=== PATIENT | male | born 1990 ===

== ENCOUNTER 2022-08-21 16:12 | Inpatient (IN) ==
[2022-08-21] MEDS ORDERED: SODIUM CHLORIDE 0.9% 1,000 ML IV PRN (16:42)
[2022-08-21 17:32] LABS: Basophils % 0.2 % (0.0-0.8); Eosinophils % 0.7 % (0.00-10.9); Immature Granulocytes % 0.7 %; Immature Granulocytes Absolute 0.03 #; Lymphocytes # 0.8 10*3/uL (1.4-4.0); Lymphocytes % 19.7 % (21.2-54.2); Mean Corpuscular Volume 75.8 FL (87-102); Mean Platelet Volume 8.5 FL (9.6-12.0); Monocytes # 0.5 10*3/uL (0.11-0.8); Monocytes % 12.5 % (1.7-12.7); NRBC # 0.05 10*3/uL; Neutrophils % 66.2 % (38.7-73.9); Platelet Count 291 T/CUMM (130-400); Red Blood Count 1.61 MC/CUMM (3.8-5.5); Red Cell Distribution Width 18.6 % (9.3-17.3)
[2022-08-21 17:33] LABS: Hemoglobin 3.3 GM/DL (14.0-18.0)
[2022-08-21 17:34] LABS: Hematocrit 12.2 VOL% (42.0-52.0)
[2022-08-21 17:49] LABS: Vitamin B12 169 PG/ML (211-911)
[2022-08-21] MEDS ORDERED: hydrALAZINE 20 MG/1 ML VIAL IV PRN (18:19)
[2022-08-21] MEDS ORDERED: guaiFENesin/DM ER 600-30 MG TABLET PO PRN (18:19)
[2022-08-21] MEDS ORDERED: NICOTINE 21 MG/24 HR PATCH TRANSDERM PRN (18:19)
[2022-08-21] MEDS ORDERED: ALBUTEROL/IPRATROPIUM 3 ML NEB RESP TX PRN (18:19)
[2022-08-21] MEDS ORDERED: PANTOPRAZOLE INJ 80 MG in SODIUM CHLORIDE 0.9% 100 ML IV ONE (18:19)
[2022-08-21] MEDS ORDERED: ZALEPLON 5 MG CAPSULE PO PRN (18:19)
[2022-08-21] MEDS ORDERED: ONDANSETRON 4 MG/2 ML VIAL IV PRN (18:19)
[2022-08-21] MEDS ORDERED: diphenhydrAMINE CAP 25 MG CAPSULE PO PRN (18:19)
[2022-08-21 18:50] LABS: Sedimentation Rate-Westergren 75 MM/HR (0-15)
[2022-08-22] MEDS: PANTOPRAZOLE INJ 200 MG in SODIUM CHLORIDE 0.9% 250 ML IV SCH (00:36)
[2022-08-22 05:13] LABS: Basophils % 0.2 % (0.0-0.8); Eosinophils # 0.1 10*3/uL (0.0-0.87); Eosinophils % 0.9 % (0.00-10.9); Immature Granulocytes % 0.5 %; Immature Granulocytes Absolute 0.03 #; Lymphocytes # 0.7 10*3/uL (1.4-4.0); Lymphocytes % 13.3 % (21.2-54.2); Mean Corpuscular HGB Conc 30.1 GM/DL (32-36); Mean Corpuscular Volume 80.2 FL (87-102); Mean Platelet Volume 8.7 FL (9.6-12.0); Monocytes # 0.6 10*3/uL (0.11-0.8); Monocytes % 10.8 % (1.7-12.7); NRBC # 0.05 10*3/uL; Neutrophils % 74.3 % (38.7-73.9); Platelet Count 309 T/CUMM (130-400); Red Blood Count 2.07 MC/CUMM (3.8-5.5); Red Cell Distribution Width 19.2 % (9.3-17.3); White Blood Count 5.5 T/CUMM (4-12)
[2022-08-22 05:19] LABS: Hematocrit 16.6 VOL% (42.0-52.0)
[2022-08-22 05:28] LABS: Osmolality,Calculated 273.7 MOS/KG (273-304); Potassium 4.1 MMOL/L (3.5-5.1)
[2022-08-22 05:31] LABS: Albumin 2.8 G/DL (3.4-5.0); Bilirubin,Direct 0.19 MG/DL (0.0-0.20); Bilirubin,Indirect 0.3 MG/DL (0.0-1.0); Bilirubin,Total 0.5 MG/DL (0.20-1.00); Total Protein 5.8 G/DL (6.4-8.2)
[2022-08-22] MEDS ORDERED: SODIUM CHLORIDE 0.9% 1,000 ML IV PRN (05:48)
[2022-08-22] MEDS: CYANOCOBALAMIN 1000 MCG/1 ML VIAL SUBCUT SCH (08:53)
[2022-08-22] MEDS: FERRIC GLUCONATE COMPLEX 125 MG in SODIUM CHLORIDE 0.9% 100 ML IV SCH (08:53)
[2022-08-22] MEDS ORDERED: IRON SUCROSE 200 MG in SODIUM CHLORIDE 0.9% 100 ML IV SCH (09:00)
[2022-08-22] MEDS ORDERED: INFLUENZA VIRUS VACCINE 0.5 ML SYRINGE IM ONE (09:00)
[2022-08-22 12:34] LABS: Hemoglobin A1 (Alkaline) 98.1 % (96.5-98.5); Hemoglobin A2 (Alkaline) 1.9 % (1.5-3.5)
[2022-08-22 14:56] LABS: Hematocrit 21.7 VOL% (42.0-52.0); Hemoglobin 6.7 GM/DL (14.0-18.0)
[2022-08-23] MEDS: PANTOPRAZOLE INJ 200 MG in SODIUM CHLORIDE 0.9% 250 ML IV SCH (03:28)
[2022-08-23 06:58] LABS: Basophils % 0.4 % (0.0-0.8); Eosinophils # 0.1 10*3/uL (0.0-0.87); Eosinophils % 1.4 % (0.00-10.9); Hematocrit 27.6 VOL% (42.0-52.0); Hemoglobin 8.9 GM/DL (14.0-18.0); Immature Granulocytes % 1.4 %; Immature Granulocytes Absolute 0.11 #; Lymphocytes # 0.7 10*3/uL (1.4-4.0); Lymphocytes % 9.2 % (21.2-54.2); Mean Corpuscular HGB Conc 32.2 GM/DL (32-36); Mean Corpuscular Volume 79.8 FL (87-102); Mean Platelet Volume 8.2 FL (9.6-12.0); Monocytes # 0.7 10*3/uL (0.11-0.8); Monocytes % 9.6 % (1.7-12.7); NRBC # 0.13 10*3/uL; Platelet Count 275 T/CUMM (130-400); Red Blood Count 3.46 MC/CUMM (3.8-5.5); Red Cell Distribution Width 18.2 % (9.3-17.3); White Blood Count 7.6 T/CUMM (4-12)
[2022-08-23 07:15] LABS: Bilirubin,Total 0.9 MG/DL (0.20-1.00); Calcium 8.3 MG/DL (8.5-10.1); Osmolality,Calculated 273.5 MOS/KG (273-304); Total Protein 6.5 G/DL (6.4-8.2)
[2022-08-23] MEDS ORDERED: LACTATED RINGERS 1,000 ML IV SCH (08:00)
[2022-08-23] MEDS: CYANOCOBALAMIN 1000 MCG/1 ML VIAL SUBCUT SCH (08:15)
[2022-08-23] MEDS: FERRIC GLUCONATE COMPLEX 125 MG in SODIUM CHLORIDE 0.9% 100 ML IV SCH (08:15)
[2022-08-23] MEDS ORDERED: LIDOCAINE 2% 5 ML VIAL ONE (11:49)
[2022-08-23] MEDS ORDERED: propofoL 200 MG/20 ML VIAL IV ONE (11:49)
[2022-08-23 12:39] VITALS: BP 107/73
[2022-08-23 13:20] LABS: Hematocrit 28.4 VOL% (42.0-52.0); Hemoglobin 8.9 GM/DL (14.0-18.0)
== END 2022-08-23 14:55 | disposition home or self-care (01) | DRG 378 ==
LOC: EDUNIT# → EDBD → N.ED 16:12 → N.EDINP 18:19 → N.TELES 23:09
PROVIDERS: ADMIT Internal Medicine; ATTEND Internal Medicine